=== PATIENT | female | born 1965 | race Caucasian/White ===

== ENCOUNTER → 2019-08-20 12:54 | Outpatient (CLI) | payer OTHER, SELFPAY ==
--- NOTE | 2019-08-20 13:07 | STEWCON_ITS ---
Reason For Study: CHEST PAIN Stress Results Protocol: Nik Protocol WITH DEFINITY Maximum Predicted HR: 165 bpm Target HR: 140 bpm % Maximum Predicted HR: 79 % DurationHeart Rate Stage (mm:ss) (bpm) BP Comment BASELINE 66 118/785 CC DEFINITY GIVEN FOR TEST STAGE 1 3:00 104 112/74 STAGE 2 3:00 120 114/74 STAGE 3 3:00 131 140/82 STAGE 4 3:00 127 144/80 RECOVERY 100 110/62 Stress Duration: 12:00 mm:ss Maximum Stress HR: 131 bpm Baseline Echocardiogram Findings The estimated ejection fraction is 60 %. Stress Echo Wall motion Data Resting WM Intermediate WM Stress WM Resting Wall Motion Wall Motion Stress No regional wall motion No regional wall motion abnormalities noted. abnormalities noted. EKG Data Normal sinus rhythm. No ischemic changes. There was one 4 beat run of atrial tach in the recovery period and occasional pvcs during exercise. Symptoms with Stress The patient experinced no chest pain . Interpretation Summary The estimated ejection fraction is 60 %. Normal sinus rhythm The patient experinced no chest pain . Stress echo is negative for exercise induced CP or EKG or echocardiographic changes of ischemia. Ordering Physician: Omari Sinha Referring Physician: Omari Sinha Performed By: Kianna العلي, SAMARIA, RVT
== END ==
PROVIDERS: Family Provider Family Medicine; PCP Family Medicine; Referring Provider Family Medicine; Visit Provider Family Medicine
DX: R07.9 Chest pain, unspecified (principal)
CPT/HCPCS: 93017; 93350; Q9957; A4216; C8928